=== PATIENT | male | born 1950 | race African-American/Black ===

== ENCOUNTER 2023-03-29 21:28 | Inpatient (IN) | payer SELFPAY ==
[~2023-03-29] VITALS: Ht 198.1 cm; Wt 74.6 kg
[2023-03-29 22:16] LABS: BG BASE EXCESS -12.6 mmol/L (-2.0-2.0); BG CARBOXYHEMOGLOBIN 8.1 % (0.5-1.5); BG DEOXYHEMOGLOBIN 2.3 % (0.0-5.0); BG HCO3 ACT 13.1 mmol/L (22.0-26.0); BG METHEMOGLOBIN 0.2 % (0.0-1.5); BG OXYGEN SATURATION 97.5 % (92.0-98.5); BG OXYHEMOGLOBIN 89.4 % (94.0-97.0); BG PCO2 29.9 mmHg (35.0-45.0); BG PO2 112.5 mmHg (75.0-100.0); BG SAMPLE SITE RIGHT RADIAL; BG TOTAL HEMOGLOBIN 12.5 g/dL (12.0-18.0); BG VENT MODE ROOM AIR
[2023-03-29] MEDS: SODIUM CHLORIDE 0.9% 1,000 ML IV ONE (22:30)
[2023-03-29] MEDS ORDERED: LORAZEPAM 2MG/ML INJ IV ONE (22:30)
[2023-03-30] LABS: HEMATOCRIT. 36.2 % (42.0-52.0); MEAN CORPUSCULAR HGB CONC 33.2 g/dL (31.0-37.0); MEAN CORPUSCULAR VOLUME 84.3 fL (80.0-94.0); MEAN PLATELET VOLUME 6.9 fl (7.4-10.4); PLATELET 300 x1000/uL (130-400); RED CELL DISTRIBUTION WIDTH 16.1 % (11.6-14.6); WHITE BLOOD COUNT 8.8 x1000/uL (4.5-11.0)
[2023-03-30 00:12] LABS: AMMONIA < 10 uMol/L (<32); DIFFERENTIAL COMMENT 1
[2023-03-30 00:13] LABS: ALANINE AMINOTRANSFERASE < 7 IU/L (10-49); ALBUMIN 3.8 g/dL (3.2-4.8); ASPARTATE AMINOTRANSFERASE 11 IU/L (<34); BILIRUBIN TOTAL 0.5 mg/dL (0.1-1.0); CALCIUM 9.4 mg/dL (8.7-10.4); CARBON DIOXIDE 27 mEq/L (21-32); CHLORIDE 106 mEq/L (98-107); CREATININE 1.4 mg/dL (0.6-1.3); GLUCOSE 142 mg/dL (70-105); POTASSIUM 3.9 mEq/L (3.5-5.1); PROTEIN TOTAL 6.4 g/dL (6.0-8.3); SODIUM 138 mEq/L (136-145); UREA NITROGEN BLOOD 12 mg/dL (9-23)
[2023-03-30] MEDS: LORAZEPAM 2MG/ML INJ IV NR (00:15)
[2023-03-30 00:18] LABS: ETHANOL BLOOD < 10 mg/dL (<10)
[2023-03-30 00:30] LABS: CLARITY URINE CLEAR (CLEAR); COLOR URINE YELLOW (YELLOW); GLUCOSE URINE NEGATIVE (NEGATIVE); KETONES URINE TRACE (NEGATIVE); LEUKOCYTE ESTERASE URINE NEGATIVE (NEGATIVE); NITRITE URINE NEGATIVE (NEGATIVE); OCCULT BLOOD URINE NEGATIVE (NEGATIVE); PH URINE 6.5 (4.5-8.0); PROTEIN URINE 1+ (NEGATIVE); SPECIFIC GRAVITY URINE 1.017 (1.005-1.030); UROBILINOGEN URINE 0.2 E.U./dL (0.2-1.0)
[2023-03-30 00:37] LABS: *AMPHETAMINES SCREEN URINE NEGATIVE (NEGATIVE); *BARBITURATES SCREEN URINE NEGATIVE (NEGATIVE); *BENZODIAZEPINES SCREEN URINE NEGATIVE (NEGATIVE); *COCAINE SCREEN URINE NEGATIVE (NEGATIVE); CANNABINOID URINE SCREEN NEGATIVE (NEGATIVE); ECSTASY MDMA SCREEN URINE NEGATIVE (NEGATIVE); METHADONE URINE SCREEN Neg (NEGATIVE); OPIATES URINE SCREEN NEGATIVE (NEGATIVE); PHENCYCLIDINE URINE SCREEN NEGATIVE (NEGATIVE)
[2023-03-30 01:02] LABS: BACTERIA URINE NONE SEEN; RBC URINE NONE SEEN /hpf (0-2); SQUAMOUS EPITHELIAL CELL URINE FEW /lpf (RARE/1+); WBC URINE 0-2 /hpf (0-2)
[2023-03-30 01:28] LABS: PLATELET ESTIMATE NORMAL
[2023-03-30 04:00] VITALS: BP 112/40; PULSE 57; RESP 20; TEMP 97.5
[2023-03-30 04:41] VITALS: BP 138/64; PULSE 94; RESP 18; TEMP 97.9
[2023-03-30 08:00] VITALS: BP 127/52; PULSE 71; RESP 18; TEMP 97.1
[2023-03-30] MEDS ORDERED: CLONIDINE 0.1MG TABLET PO PRN (10:00)
[2023-03-30] MEDS ORDERED: LORAZEPAM 4MG/ML INJ IV PRN (10:00)
[2023-03-30] MEDS ORDERED: MAGNESIUM/ALUMINUM HYDROXIDE/SIMETHICONE 30ML UDC PO PRN (10:00)
[2023-03-30] MEDS ORDERED: DEXTROSE 50% WATER 50ML SYRINGE IV PRN (10:00)
[2023-03-30] MEDS ORDERED: ONDANSETRON HCL 4MG/2ML INJ IV PRN (10:00)
[2023-03-30] MEDS ORDERED: ACETAMINOPHEN 650MG/20.3ML UDC GT PRN ×2 (10:00)
[2023-03-30] MEDS ORDERED: IPRATROPIUM/ALBUTEROL 0.5-3(2.5)MG/3ML NEB HHN PRN (10:00)
[2023-03-30] MEDS ORDERED: GUAIFENESIN 200MG/10ML SUGAR FREE UDC PO PRN (10:00)
[2023-03-30] MEDS ORDERED: THIAMINE HCL 100MG TABLET PO ONE (10:15)
[2023-03-30] MEDS ORDERED: FOLIC ACID 1MG TABLET PO SCH (10:15)
[2023-03-30] MEDS ORDERED: MULTIVITAMINS,THER W-MINERALS TABLET PO SCH (10:15)
[2023-03-30] MEDS: BLOOD SUGAR DIAGNOSTIC STRIP TEST SCH (11:33)
[2023-03-30 12:00] VITALS: BP 126/41; PULSE 70; RESP 18; TEMP 97.9
[2023-03-30] MEDS ORDERED: MVI, ADULT NO.1 10 ML, FOLIC ACID 1 MG, THIAMINE HCL 100 MG in SODIUM CHLORIDE 0.9% 1,0... IV ONE (12:00)
[2023-03-30] MEDS: INSULIN LISPRO 100 UNITS/ML SUBCUT SCH (12:17)
[2023-03-30] MEDS: MVI, ADULT NO.1 10 ML, FOLIC ACID 1 MG, THIAMINE HCL 100 MG in SODIUM CHLORIDE 0.9% 1,0... IV ONE (12:38)
[2023-03-30] MEDS: ENOXAPARIN 40MG/0.4ML SYR SUBCUT SCH (12:39)
[2023-03-30 16:00] VITALS: BP 103/54; PULSE 63; RESP 18; TEMP 98.1
[2023-03-30] MEDS: DOCUSATE SODIUM 100MG CAPSULE PO PRN (17:55)
[2023-03-30] MEDS ORDERED: LORAZEPAM 2MG/ML INJ IV PRN (18:15)
[2023-03-30 20:00] VITALS: BP 111/47; PULSE 72; RESP 19; TEMP 97.3
[2023-03-30] MEDS: METOPROLOL TARTRATE 25MG TABLET PO SCH (20:31)
[2023-03-30] MEDS: LEVETIRACETAM 500MG TABLET PO SCH (20:31)
[2023-03-30] MEDS: FAMOTIDINE 20MG TABLET PO SCH (20:31)
[2023-03-30] MEDS: ATORVASTATIN CALCIUM 40MG TABLET PO SCH (20:32)
[2023-03-30] MEDS ORDERED: INFLUENZA VACCINE 05/PF 0.5 ML SYRINGE IM ONE (21:00)
[2023-03-30] MEDS ORDERED: PNEUMOCOCCAL 23-VAL P-SAC VAC 0.5 ML IM ONE (21:00)
[2023-03-30 21:38] LABS: CREATINE KINASE 86 IU/L (46-171); TROPONIN I HIGH SENSITIVITY 8 ng/L (3.0-53)
[2023-03-31] VITALS: BP 127/72; PULSE 61; RESP 18; TEMP 97.4
[2023-03-31 04:00] VITALS: BP 104/49; PULSE 59; RESP 18; TEMP 98.2
[2023-03-31 05:10] LABS: CREATINE KINASE 78 IU/L (46-171); TROPONIN I HIGH SENSITIVITY 7 ng/L (3.0-53)
[2023-03-31 05:22] LABS: ALANINE AMINOTRANSFERASE < 7 IU/L (10-49); ALBUMIN 3.3 g/dL (3.2-4.8); ASPARTATE AMINOTRANSFERASE 11 IU/L (<34); BILIRUBIN TOTAL 0.7 mg/dL (0.1-1.0); CALCIUM 8.6 mg/dL (8.7-10.4); CARBON DIOXIDE 27 mEq/L (21-32); CHLORIDE 109 mEq/L (98-107); CHOLESTEROL 147 mg/dL (<200); CREATININE 1.2 mg/dL (0.6-1.3); GLUCOSE 85 mg/dL (70-105); HDL CHOLESTEROL 71 mg/dL (>55); LDL CHOLESTEROL 63 mg/dL (5-100); POTASSIUM 3.7 mEq/L (3.5-5.1); PROTEIN TOTAL 5.9 g/dL (6.0-8.3); SODIUM 142 mEq/L (136-145); T4 FREE 0.88 ng/dL (0.89-1.76); THYROID STIMULATING HORMONE 1.11 uIU/mL (0.55-4.78); TRIGLYCERIDE 69 mg/dL (0-150); UREA NITROGEN BLOOD 12 mg/dL (9-23)
[2023-03-31 05:59] LABS: BASOPHILS % 0.2 % (0.0-2.0); EOSINOPHILS % 1.2 % (0.0-5.0); HEMATOCRIT. 31.2 % (42.0-52.0); HEMOGLOBIN. 10.5 g/dL (14.0-18.0); LYMPHOCYTES % 42.3 % (20.0-50.0); MEAN CORPUSCULAR HEMOGLOBIN 28.3 pg (28.0-32.0); MEAN CORPUSCULAR HGB CONC 33.5 g/dL (31.0-37.0); MEAN CORPUSCULAR VOLUME 84.5 fL (80.0-94.0); MEAN PLATELET VOLUME 7.8 fl (7.4-10.4); NEUTROPHILS % 46.3 % (40.0-76.0); PLATELET 265 x1000/uL (130-400); RED CELL DISTRIBUTION WIDTH 16.2 % (11.6-14.6); WHITE BLOOD COUNT 6.1 x1000/uL (4.5-11.0)
[2023-03-31 08:00] VITALS: BP 139/74; PULSE 80; RESP 18; TEMP 98.1
[2023-03-31] MEDS: POLYETHYLENE GLYCOL 3350 (17GM) 1 DOSE PACK PO SCH (09:27)
[2023-03-31] MEDS: FOLIC ACID 1MG TABLET PO SCH (09:28)
[2023-03-31] MEDS: MULTIVITAMINS,THER W-MINERALS TABLET PO SCH (09:28)
[2023-03-31] MEDS: METOPROLOL TARTRATE 25MG TABLET PO SCH (09:31)
[2023-03-31] MEDS: THIAMINE HCL 100MG TABLET PO SCH (09:32)
[2023-03-31] MEDS: FINASTERIDE 5MG TABLET PO SCH (09:32)
[2023-03-31] MEDS ORDERED: THIA100T72 PO (11:14)
[2023-03-31] MEDS ORDERED: FOLI-43 PO (11:14)
[2023-03-31] MEDS ORDERED: KEPP500 PO (11:14)
[2023-03-31 12:00] VITALS: BP 132/55; PULSE 52; RESP 18; TEMP 98.1
[2023-03-31 16:00] VITALS: BP 109/49; PULSE 61; RESP 16; TEMP 97.9
[2023-03-31 16:46] VITALS: BP 109/49; PULSE 61; TEMP 97.9; O2SAT 98
== END 2023-03-31 17:15 | disposition home or self-care (01) | DRG 53 ==
LOC: ER 21:28 → EDBD 21:28 → 7WST 03-30 01:47 → EDBEDREQ 03-30 01:48
PROVIDERS: ADMIT Internal Medicine; ATTEND Internal Medicine
DX: G40.909 Epilepsy, unspecified, not intractable, without status epilepticus (principal); G92.8 Other toxic encephalopathy; E87.20 Acidosis, unspecified; F10.229 Alcohol dependence with intoxication, unspecified; D64.9 Anemia, unspecified; E78.5 Hyperlipidemia, unspecified; E11.65 Type 2 diabetes mellitus with hyperglycemia; F17.210 Nicotine dependence, cigarettes, uncomplicated; I10 Essential (primary) hypertension; N40.0 Benign prostatic hyperplasia without lower urinary tract symptoms; Z79.899 Other long term (current) drug therapy
CPT/HCPCS: 36415; 36600; 71045; 80053; 80061; 80305; 80320; 81003; 82140; 82375; 82550; 82805; 82962; 82977; 83036; 83605; 84439; 84443; 84484; 85025; 93005; 97162; 97165; 99291; J1650; J1815; J2060; J3411; J3490; J7030; G0480